=== PATIENT | male | born 1955 | race Caucasian/White ===

== ENCOUNTER 2020-04-10 11:16 | Inpatient (IN) | payer OTHER, SELFPAY ==
[~2020-04-10] VITALS: Ht 172.7 cm; Wt 114.8 kg
[2020-04-10 11:30] VITALS: BP_SYST 147
[2020-04-10] MEDS ORDERED: NACL 0.9% 1,000 ML IV ONE (11:45)
[2020-04-10] MEDS ORDERED: TURM500C9 PO (11:54)
[2020-04-10] MEDS ORDERED: CHOL500052 PO (11:54)
[2020-04-10] MEDS ORDERED: OMEG300C3 PO (11:54)
[2020-04-10] MEDS ORDERED: CARV25TA55 PO (11:54)
[2020-04-10] MEDS ORDERED: ELDE1CAP PO (11:54)
[2020-04-10] MEDS ORDERED: SIMV40TA2 PO (11:54)
[2020-04-10] MEDS ORDERED: CLOP75TA2 PO (11:54)
[2020-04-10] MEDS ORDERED: CANA1TAB4 PO (11:54)
[2020-04-10] MEDS ORDERED: SEMA0.25 INJ (11:54)
[2020-04-10] MEDS ORDERED: ASPI-524 PO (11:54)
[2020-04-10 11:58] LABS: BASOPHILS # (AUTO) 0.1 K/uL (0.0-0.2); BASOPHILS % (AUTO) 0.4 % (0.0-2.0); EOSINOPHILS % (AUTO) 0.4 % (0.0-4.0); HEMATOCRIT 46.8 % (36-54); HEMOGLOBIN 14.9 g/dL (14.0-18.0); LYMPHOCYTES # (AUTO) 0.9 K/uL (1.0-5.5); LYMPHOCYTES % (AUTO) 6.5 % (20.5-51.5); MEAN CORPUSCULAR HEMOGLOBIN 29 pg (27-31); MEAN CORPUSCULAR HGB CONC 32 % (32-36); MEAN CORPUSCULAR VOLUME 91 fL (79.0-98.0); MONOCYTES # (AUTO) 0.7 K/uL (0.0-1.0); MONOCYTES % (AUTO) 5.6 % (1.7-9.3); NEUTROPHILS # (AUTO) 11.7 K/uL (1.8-7.7); NEUTROPHILS % (AUTO) 87.1 % (40.0-70.0); PLATELET COUNT (AUTO) 327 K/uL (130-430); RED BLOOD CELL COUNT(AUTO) 5.16 MIL/uL (4.2-6.2); RED CELL DISTRIBUTION WIDTH 13.7 % (9.0-15.0); WHITE BLOOD COUNT (AUTO) 13.4 K/uL (4.8-10.8)
[2020-04-10 12:23] LABS: CALCIUM 9.8 mg/dL (8.4-11.0); CREATININE 1.02 mg/dL (0.55-1.30); POTASSIUM 4.2 mmol/L (3.5-5.1)
[2020-04-10 16:05] VITALS: BP_SYST 140
[2020-04-10] MEDS ORDERED: INSULIN REGULAR, HUMAN 100 UNITS/ML, 10 ML VIAL (humuLIN R) SUBCUT PRN (16:15)
[2020-04-10] MEDS ORDERED: ONDANSETRON HCL 4 MG/2 ML VIAL IVP PRN (16:15)
[2020-04-10] MEDS ORDERED: GLUCOSE (DEXTROSE) ORAL GEL -Adults PO PRN (17:00)
[2020-04-10] MEDS ORDERED: D5W 1,000 ML IV PRN (17:00)
[2020-04-10] MEDS ORDERED: DEXTROSE 50%-WATER 50 ML DISP.SYRIN IVP PRN (17:00)
[2020-04-10] MEDS: POTASSIUM CHLORIDE 20 MEQ in 0.45% NACL 1,000 ML IV SCH (17:20)
[2020-04-10 20:10] VITALS: BP_SYST 130
[2020-04-10] MEDS: CARVEDILOL 25 MG TABLET (COREG) PO SCH (21:00)
[2020-04-10] MEDS: CLOPIDOGREL BISULFATE 75 MG TABLET PO SCH (21:00)
[2020-04-10] MEDS: PANTOPRAZOLE SODIUM 40 MG/VIAL (PROTONIX) IVP SCH (21:19)
[2020-04-11 00:12] VITALS: BP_SYST 113
[2020-04-11] MEDS: POTASSIUM CHLORIDE 20 MEQ in 0.45% NACL 1,000 ML IV SCH ×3 (06:15→22:09)
[2020-04-11 07:15] LABS: BASOPHILS % (AUTO) 0.3 % (0.0-2.0); EOSINOPHILS % (AUTO) 0.4 % (0.0-4.0); HEMATOCRIT 42.4 % (36-54); HEMOGLOBIN 14.2 g/dL (14.0-18.0); LYMPHOCYTES # (AUTO) 1.1 K/uL (1.0-5.5); LYMPHOCYTES % (AUTO) 8.9 % (20.5-51.5); MEAN CORPUSCULAR HEMOGLOBIN 30 pg (27-31); MEAN CORPUSCULAR HGB CONC 33 % (32-36); MEAN CORPUSCULAR VOLUME 90 fL (79.0-98.0); MONOCYTES % (AUTO) 8.1 % (1.7-9.3); NEUTROPHILS # (AUTO) 9.9 K/uL (1.8-7.7); NEUTROPHILS % (AUTO) 82.3 % (40.0-70.0); PLATELET COUNT (AUTO) 306 K/uL (130-430); RED BLOOD CELL COUNT(AUTO) 4.73 MIL/uL (4.2-6.2); WHITE BLOOD COUNT (AUTO) 12.1 K/uL (4.8-10.8)
[2020-04-11 07:16] LABS: CALCIUM 9.1 mg/dL (8.4-11.0); CREATININE 0.94 mg/dL (0.55-1.30); POTASSIUM 4.1 mmol/L (3.5-5.1)
[2020-04-11 08:00] VITALS: BP_SYST 122
[2020-04-11] MEDS ORDERED: ENOXAPARIN SODIUM 40 MG/0.4 ML SYRINGE ONE (08:28)
[2020-04-11] MEDS: PANTOPRAZOLE SODIUM 40 MG/VIAL (PROTONIX) IVP SCH ×2 (08:29→20:51)
[2020-04-11] MEDS: CARVEDILOL 25 MG TABLET (COREG) PO SCH ×2 (08:30→20:54)
[2020-04-11] MEDS ORDERED: ENOXAPARIN SODIUM 40 MG/0.4 ML SYRINGE SUBCUT SCH (09:00)
[2020-04-11 09:04] VITALS: BP_SYST 140
[2020-04-11] MEDS ORDERED: BARIUM SULFATE 135 ML SUSP.RECON (E-Z-HD) PO ONE (09:59)
[2020-04-11 12:00] VITALS: BP_SYST 118
[2020-04-11 16:43] VITALS: BP_SYST 136
[2020-04-11 20:00] VITALS: BP_SYST 129
[2020-04-11] MEDS: CLOPIDOGREL BISULFATE 75 MG TABLET PO SCH (20:54)
[2020-04-12] VITALS: BP_SYST 118
[2020-04-12 06:37] LABS: PROTHROMBIN TIME 10.4 SECS (9.5-12.5)
[2020-04-12] MEDS ORDERED: SIMETHICONE 40 MG/0.6 ML ML ONE (07:39)
[2020-04-12] MEDS ORDERED: fentaNYL CITRATE/PF 100 MCG/2 ML AMP ONE (07:39)
[2020-04-12] MEDS ORDERED: MIDAZOLAM HCL 5 MG/5 ML VIAL ONE (07:40)
[2020-04-12 07:55] VITALS: BP_SYST 148
[2020-04-12] MEDS: PANTOPRAZOLE SODIUM 40 MG/VIAL (PROTONIX) IVP SCH ×2 (09:52→20:39)
[2020-04-12] MEDS: CARVEDILOL 25 MG TABLET (COREG) PO SCH ×2 (09:57→20:39)
[2020-04-12 12:38] VITALS: BP_SYST 120
[2020-04-12] MEDS: POTASSIUM CHLORIDE 20 MEQ in 0.45% NACL 1,000 ML IV SCH (14:38)
[2020-04-12 17:03] VITALS: BP_SYST 122
[2020-04-12 20:00] VITALS: BP_SYST 138
[2020-04-12 23:50] VITALS: BP_SYST 119
[2020-04-13] MEDS ORDERED: ACETAMINOPHEN 325 MG TABLET PO PRN (00:15)
[2020-04-13] MEDS: POTASSIUM CHLORIDE 20 MEQ in 0.45% NACL 1,000 ML IV SCH (03:35)
[2020-04-13 08:00] VITALS: BP_SYST 143
[2020-04-13] MEDS: PANTOPRAZOLE SODIUM 40 MG/VIAL (PROTONIX) IVP SCH (09:17)
[2020-04-13] MEDS: CARVEDILOL 25 MG TABLET (COREG) PO SCH (09:18)
[2020-04-13 09:33] LABS: BASOPHILS % (AUTO) 0.3 % (0.0-2.0); EOSINOPHILS # (AUTO) 0.1 K/uL (0.0-0.4); EOSINOPHILS % (AUTO) 1.1 % (0.0-4.0); HEMATOCRIT 43.7 % (36-54); HEMOGLOBIN 14.3 g/dL (14.0-18.0); LYMPHOCYTES # (AUTO) 0.8 K/uL (1.0-5.5); LYMPHOCYTES % (AUTO) 7.8 % (20.5-51.5); MEAN CORPUSCULAR HEMOGLOBIN 29 pg (27-31); MEAN CORPUSCULAR HGB CONC 33 % (32-36); MEAN CORPUSCULAR VOLUME 89 fL (79.0-98.0); MONOCYTES # (AUTO) 0.7 K/uL (0.0-1.0); NEUTROPHILS # (AUTO) 8.8 K/uL (1.8-7.7); NEUTROPHILS % (AUTO) 83.8 % (40.0-70.0); PLATELET COUNT (AUTO) 376 K/uL (130-430); RED BLOOD CELL COUNT(AUTO) 4.89 MIL/uL (4.2-6.2); RED CELL DISTRIBUTION WIDTH 14.1 % (9.0-15.0); WHITE BLOOD COUNT (AUTO) 10.5 K/uL (4.8-10.8)
[2020-04-13 11:44] VITALS: BP_SYST 131
[2020-04-13 15:41] VITALS: BP_SYST 131
[2020-04-13 16:22] VITALS: BP_SYST 130
== END 2020-04-13 15:55 | disposition home or self-care (01) | DRG 392 ==
LOC: SED 11:16 → SMU 12:30
PROVIDERS: ADMIT Family Medicine; ATTEND Family Medicine
PROC: 0DB58ZX Excision of Esophagus, Via Natural or Artificial Opening Endoscopic, Diagnostic (ICD-10-PCS; 2020-04-12)
PROC: 0D758ZZ Dilation of Esophagus, Via Natural or Artificial Opening Endoscopic (ICD-10-PCS; 2020-04-12)
PROC: 0DB98ZX Excision of Duodenum, Via Natural or Artificial Opening Endoscopic, Diagnostic (ICD-10-PCS; principal; 2020-04-12 08:45)
DX: K22.2 Esophageal obstruction (principal); R13.10 Dysphagia, unspecified; E66.9 Obesity, unspecified; K29.70 Gastritis, unspecified, without bleeding; Z20.822 Contact with and (suspected) exposure to COVID-19; E11.9 Type 2 diabetes mellitus without complications; K21.9 Gastro-esophageal reflux disease without esophagitis; I10 Essential (primary) hypertension; K29.80 Duodenitis without bleeding; Z85.46 Personal history of malignant neoplasm of prostate; Z98.84 Bariatric surgery status; Z68.38 Body mass index [BMI] 38.0-38.9, adult; Z91.041 Radiographic dye allergy status; Z79.899 Other long term (current) drug therapy
CPT/HCPCS: 36415; 43239; 71045; 74220-TC; 80048; 82962; 83735-TC; 85025; 85610-TC; 87081; 88305; 88313; 93005; C9113; J1650; J1815; J2250; J3010; J3480